=== PATIENT | female | born 1975 ===

== ENCOUNTER 2018-07-29 14:03 | Inpatient (IN) | payer OTHER ==
--- NOTE | 2018-07-29 14:28 | ED PDOC ---
HPI: Seizure Time Seen by Provider: 07/29/18 14:10 Chief Complaint (Nursing): Seizure Chief Complaint (Provider): Seizure History Per: EMS History/Exam Limitations: clinical condition Recent Seizure Activity Began: Just Before Arrival Number Of Seizures: One Quality Of Seizure: Generalized Post-ictal Period: Yes Additional Complaint(s): 42 year old female with a PMHx of seizure disorder, schizophrenia and mental delay was brought to the ED via EMS for an evaluation of a seizure. Patient had a seizure at PMD office. Seizure was generalized tonic-clonic and patient received 2mg Ativan IM in left deltoid for resolution. PMD: Non [facility] Provider Past Medical History Reviewed: Historical Data, Nursing Documentation, Vital Signs Vital Signs: Last Vital Signs Temp Pulse 106 H 07/29/18 16:23 Resp 23 07/29/18 16:23 BP 117/63 07/29/18 16:23 Pulse Ox 98 07/29/18 16:23 - Medical History PMH: Schizophrenia, Seizures - Family History Family History: States: Unknown Family Hx - Home Medications Home Medications: Ambulatory Orders Medication Instructions Recorded Benztropine [Cogentin] 2 mg PO Q12 07/29/18 Clonazepam [Klonopin] 2 mg PO Q12 07/29/18 DiphenhydrAMINE [Benadryl] 50 mg PO HS PRN 07/29/18 Docusate [Colace] 100 mg PO BID 07/29/18 LORazepam [Ativan] 1 mg PO Q8 PRN 07/29/18 Oxcarbazepine [Trileptal] 150 mg PO Q12 07/29/18 PHENobarbital [PHENobarbital Tab] 60 mg PO Q8 07/29/18 Phenytoin, Extended [Dilantin] 100 mg PO Q8 07/29/18 QUEtiapine [SEROquel] 50 mg PO HS 07/29/18 Ranitidine HCl [Zantac] 300 mg PO DAILY 07/29/18 Sennosides [Senna] 17.2 mg PO Q12 PRN 07/29/18 carBAMazepine [Tegretol] 200 mg PO Q8 07/29/18 fluPHENAZine [Prolixin] 5 mg PO HS 07/29/18 lamoTRIgine [Lamictal] 25 mg PO Q8 07/29/18 - Allergies Allergies/Adverse Reactions: Allergies Allergy/AdvReac Type Severity Reaction Status Date / Time Unobtainable Allergy Verified 07/29/18 14:11 Review of Systems Review Of Systems: ROS cannot be obtained secondary to pt's inabilty to answer questions. Physical Exam - Reviewed Nursing Documentation Reviewed: Yes Vital Signs Reviewed: Yes - Physical Exam Appears: Positive for: Non-toxic Head Exam: Positive for: ATRAUMATIC, NORMAL INSPECTION, NORMOCEPHALIC Skin: Positive for: Normal Color, Warm, Dry Cardiovascular/Chest: Positive for: Regular Rate, Rhythm Respiratory: Positive for: Normal Breath Sounds Gastrointestinal/Abdominal: Positive for: Soft. Negative for: Tenderness Neurologic/Psych: Positive for: Alert, Oriented (X3), Mood/Affect (patient crying, screaming, kicking and incomprehensive speech). Negative for: Motor/ Sensory Deficits (focal or motor) - Laboratory Results Result Diagrams: 07/29/18 16:30 07/29/18 16:30 - ECG Pulse Ox Interpretation: Normal Medical Decision Making Medical Decision Making: Time: 1411 Initial Impression: seizure Initial Plan: --EKG --CMP --Dilantin --ED Urine --ED Urine Dipstick --CBC w/ Differential --Phenobarbital --Haldol 5mg --Restraint: Violent or harm self/others --Reevaluation Scribe Attestation: Documented by Celena Rangel, acting as a scribe for Dung Harkins MD. Provider Scribe Attestation: All medical record entries made by the Scribe were at my direction and personally dictated by me. I have reviewed the chart and agree that the record accurately reflects my personal performance of the history, physical exam, medical decision making, and the department course for this patient. I have also personally directed, reviewed, and agree with the discharge instructions and disposition. Disposition - Clinical Impression Clinical Impression: Seizure disorder, Schizophrenia - Patient ED Disposition Is Patient to be Admitted: Yes - Disposition Disposition Time: 18:24 Condition: FAIR Forms: [employer] (Swazi) - Pt Status Changed To: Hospital Disposition Of: Observation - POA Present On Arrival: None
[2018-07-29] MEDS ORDERED: Sterile Water 10 ML IV ONE (15:38)
[2018-07-29 16:46] LABS: BASO % 0.3 % (0.0-2.0); EOS % 0.3 % (0.0-4.0); HEMOGLOBIN 11.7 g/dL (12.0-16.0); LYMPH # 0.7 K/uL (1.0-4.3); LYMPH % 14.5 % (20.0-40.0); MEAN CORPUSCULAR HEMOGLOBIN 28.1 pg (27.0-31.0); MEAN CORPUSCULAR HGB CONC 33.5 g/dL (33.0-37.0); MEAN PLATELET VOLUME 7.2 fl (7.2-11.7); MONO # 0.6 K/uL (0.0-0.8); MONO % 13.1 % (0.0-10.0); NEUT # 3.5 K/uL (1.8-7.0); NEUT % 71.8 % (50.0-75.0); NRBC % 0.4 % (0.0-0.0); RBC 4.17 Mil/uL (3.80-5.20); RED CELL DISTRIBUTION WIDTH 12.3 % (11.5-14.5); WHITE BLOOD COUNT 4.9 K/uL (4.8-10.8)
[2018-07-29 17:10] LABS: ALB/GLOB RATIO 0.9 (1.0-2.1); ALBUMIN 4.5 g/dL (3.5-5.0); ALT/SGPT 29 U/L (9-52); AST/SGOT 29 U/L (14-36); BLOOD UREA NITROGEN 4 mg/dl (7-17); GFR NON-AFRICAN AMERICAN > 60
[2018-07-30 06:10] LABS: BASO % 0.3 % (0.0-2.0); EOS # 0.1 K/uL (0.0-0.7); EOS % 1.7 % (0.0-4.0); HEMOGLOBIN 11.2 g/dL (12.0-16.0); LYMPH # 1.4 K/uL (1.0-4.3); LYMPH % 26.4 % (20.0-40.0); MEAN CELL VOLUME 85.2 fl (81.0-99.0); MEAN CORPUSCULAR HGB CONC 32.9 g/dL (33.0-37.0); MEAN PLATELET VOLUME 7.6 fl (7.2-11.7); MONO # 0.7 K/uL (0.0-0.8); NEUT % 58.6 % (50.0-75.0); RBC 3.99 Mil/uL (3.80-5.20); RED CELL DISTRIBUTION WIDTH 12.5 % (11.5-14.5); WHITE BLOOD COUNT 5.2 K/uL (4.8-10.8)
[2018-07-30 06:27] LABS: T4 5.36 ug/dl (5.5-11.0)
[2018-07-30 06:41] LABS: T3 1.48 nmol/L (1.49-2.60)
--- NOTE | 2018-07-30 06:41 | CP.PCM.HP ---
History of Present Illness - History of Present Illness History of Present Illness: 42 yo F with pmhx of schizophrenia, seizure disorder presented to ED due to recent seizures at PMD office. She was given Ativan 2mg. fmhx: unknown Present on Admission - Present on Admission Any Indicators Present on Admission: No History of Uncontrolled Diabetes: No Review of Systems - Review of Systems Systems not reviewed;Unavailable: Altered Mental Status, Other (intellectual disability) - Constitutional Constitutional: As Per HPI Past Patient History - Past Medical History & Family History Past Medical History?: Yes - Past Social History Smoking Status: Never Smoked Alcohol: None Drugs: Denies - CARDIAC Hx Cardiac Disorders: No - PULMONARY Hx Respiratory Disorders: No - NEUROLOGICAL Hx Neurological Disorder: Yes Hx Seizures: Yes - HEENT Hx HEENT Problems: No - RENAL Hx Chronic Kidney Disease: No - ENDOCRINE/METABOLIC Hx Endocrine Disorders: No - HEMATOLOGICAL/ONCOLOGICAL Hx Blood Disorders: No Hx AIDS: No Hx Human Immunodeficiency Virus (HIV): No - INTEGUMENTARY Hx Dermatological Problems: No - MUSCULOSKELETAL/RHEUMATOLOGICAL Hx Falls: No - GENITOURINARY/GYNECOLOGICAL Hx Genitourinary Disorders: No - PSYCHIATRIC Hx Schizophrenia: Yes Hx Substance Use: No - SURGICAL HISTORY Hx Surgeries: No - ANESTHESIA Hx Anesthesia: No Meds Allergies/Adverse Reactions: Allergies Allergy/AdvReac Type Severity Reaction Status Date / Time Unobtainable Allergy Verified 07/29/18 14:11 Physical Exam - Eye Exam Eye Exam: EOMI - Respiratory Exam Respiratory Exam: Clear to Auscultation Bilateral, NORMAL BREATHING PATTERN. absent: Wheezes - Cardiovascular Exam Cardiovascular Exam: +S1, +S2 - GI/Abdominal Exam GI & Abdominal Exam: Normal Bowel Sounds, Soft. absent: Tenderness - Psychiatric Exam Additional comments: intellectual disability Results - Vital Signs Recent Vital Signs: Last Vital Signs Temp 98.1 F 07/30/18 05:01 Pulse 72 07/30/18 05:01 Resp 18 07/30/18 05:01 BP 101/56 L 07/30/18 05:01 Pulse Ox 98 07/30/18 05:01 - Labs Result Diagrams: 07/30/18 05:20 07/30/18 05:20 Labs: Laboratory Results - last 24 hr 07/29/18 07/29/18 07/29/18 16:30 16:30 16:30 WBC 4.9 RBC 4.17 Hgb 11.7 L Hct 35.0 MCV 84.0 MCH 28.1 MCHC 33.5 RDW 12.3 Plt Count 274 MPV 7.2 Neut % (Auto) 71.8 Lymph % (Auto) 14.5 L [place] % (Auto) 13.1 H Eos % (Auto) 0.3 Baso % (Auto) 0.3 Neut # (Auto) 3.5 Lymph # (Auto) 0.7 L [place] # (Auto) 0.6 Eos # (Auto) 0.0 Baso # (Auto) 0.0 Sodium 138 Potassium 3.7 Chloride 102 Carbon Dioxide 26 Anion Gap 14 BUN 4 L Creatinine 0.6 L Est GFR ( Amer) > 60 Est GFR (Non-Af Amer) > 60 POC Glucose (mg/dL) Random Glucose 111 H Calcium 9.0 Total Bilirubin 0.1 L AST 29 ALT 29 Alkaline Phosphatase 99 Total Protein 9.4 H Albumin 4.5 Globulin 5.0 H Albumin/Globulin Ratio 0.9 L Thyroxine (T4) Total T3 TSH 3rd Generation Phenytoin 22.6 H 07/29/18 07/30/18 07/30/18 19:48 05:20 05:20 WBC 5.2 RBC 3.99 Hgb 11.2 L Hct 34.0 MCV 85.2 MCH 28.0 MCHC 32.9 L RDW 12.5 Plt Count 287 MPV 7.6 Neut % (Auto) 58.6 Lymph % (Auto) 26.4 [place] % (Auto) 13.0 H Eos % (Auto) 1.7 Baso % (Auto) 0.3 Neut # (Auto) 3.0 Lymph # (Auto) 1.4 [place] # (Auto) 0.7 Eos # (Auto) 0.1 Baso # (Auto) 0.0 Sodium Potassium Chloride Carbon Dioxide Anion Gap BUN Creatinine Est GFR ( Amer) Est GFR (Non-Af Amer) POC Glucose (mg/dL) 75 Random Glucose Calcium Total Bilirubin AST ALT Alkaline Phosphatase Total Protein Albumin Globulin Albumin/Globulin Ratio Thyroxine (T4) 5.36 L Total T3 1.48 L TSH 3rd Generation 0.88 Phenytoin Assessment & Plan (1) Schizophrenia Status: Acute (2) Seizure disorder Status: Acute - Assessment and Plan (Free Text) Plan: 42 yo F with pmhx of schizophrenia, seizure disorder presented to ED due to recent seizures Psychiatry; Dr. Astorga: Taper doxepin; recommendations appreciated Consult neurology: recommendations appreciated Continue with treatment/care as ordered case dw Dr. Molly Silverman MD PGY2
[2018-07-30 06:47] LABS: ALBUMIN 3.9 g/dL (3.5-5.0); ALT/SGPT 26 U/L (9-52); AST/SGOT 33 U/L (14-36); BLOOD UREA NITROGEN 10 mg/dl (7-17); CALCIUM 8.9 mg/dL (8.4-10.2); GFR NON-AFRICAN AMERICAN > 60
--- NOTE | 2018-07-30 07:40 | CARD ---
APPROVED REPORT Date of service: 07/29/2018 EKG Measurement Heart [id number] <Conclusion> Normal sinus rhythm Possible Left atrial enlargement Borderline ECG
--- NOTE | 2018-07-30 08:23 | CP.PCM.CON ---
History of Present Illness - History of Present Illness History of Present Illness: Psychiatry consult note CC: Admitted w/ seizures HPI: 42 yo female w/ h/o seizure disorder, intellectual disability and schizophrenia, admitted w/ seizures. Patient was acutely sedated and unable to engage in interview. Community Engagement Specialist spoke w/ patient's mother/guardian, Violet Murcia , who reports that patient is at her baseline psychiatrically and that she does not believe that the patient needs acute inpatient psychiatric admission at this time. She reports that the patient has been compliant with her psychiatric medications (Ativan 1 mg PO Q8 PRN anxiety, Prolixin 5 mg PO HS, Seroquel 50 mg PO HS, Doxepin 150 mg PO HS, Prolixin 37.5 mg IM [id number]- next dose due 08.06.18, Benadryl 50 mg PO HS PRN insomnia). She reports that the patient has been stable on this regimen and that she does not believe the medications needs to be modified at this time. Patient has outpatient psychiatric follow-up with Dr. Barr on 08.19.18. PPHx: Intellectual Disability, Schizophrenia PMHx: Seizure Disorder, Constipation SHx: Lives w/ mother and mother's uncle; no drugs/etoh/cig use Impression: 42 yo h/o seizure disorder, intellectual disability and schizophrenia, is at her baseline of functioning psychiatrically as per her mother/guardian, who does not believe the patient needs psychiatric hospitalization at this time. -Continue current psychiatric medications if not medically contraindicated and outpatient psychiatric follow-up -Consider neurology consult for management of seizure disorder Past Patient History - Past Medical History & Family History Past Medical History?: Yes - Past Social History Smoking Status: Never Smoked - CARDIAC Hx Cardiac Disorders: No - PULMONARY Hx Respiratory Disorders: No - NEUROLOGICAL Hx Neurological Disorder: Yes - HEENT Hx HEENT Problems: No - RENAL Hx Chronic Kidney Disease: No - ENDOCRINE/METABOLIC Hx Endocrine Disorders: No - HEMATOLOGICAL/ONCOLOGICAL Hx Blood Disorders: No Hx AIDS: No Hx Human Immunodeficiency Virus (HIV): No - INTEGUMENTARY Hx Dermatological Problems: No - MUSCULOSKELETAL/RHEUMATOLOGICAL Hx Falls: No - GENITOURINARY/GYNECOLOGICAL Hx Genitourinary Disorders: No - PSYCHIATRIC Hx Substance Use: No - SURGICAL HISTORY Hx Surgeries: No - ANESTHESIA Hx Anesthesia: No Meds Allergies/Adverse Reactions: Allergies Allergy/AdvReac Type Severity Reaction Status Date / Time Unobtainable Allergy Verified 07/29/18 14:11 - Medications Medications: Current Medications Clonazepam (Klonopin) 2 mg PO Q12 [facility] Last Admin: 07/30/18 00:04 Dose: 2 mg Famotidine (Pepcid) 40 mg PO DAILY [facility] Oxcarbazepine (Trileptal) 150 mg PO Q12 [facility] Last Admin: 07/30/18 00:05 Dose: 150 mg Phenobarbital (Phenobarbital Tab) 60 mg PO Q8 [facility] Last Admin: 07/30/18 00:03 Dose: 60 mg Phenytoin Sodium (Dilantin) 100 mg PO Q8 [facility] Last Admin: 07/30/18 00:04 Dose: 100 mg Quetiapine Fumarate (Seroquel) 50 mg PO [facility] Last Admin: 07/30/18 00:04 Dose: 50 mg Sennosides (Senokot Tab) 17.2 mg PO Q12 PRN PRN Reason: Constipation Results - Vital Signs Recent Vital Signs: Last Vital Signs Temp 98.4 F 07/30/18 08:18 Pulse 82 07/30/18 08:18 Resp 18 07/30/18 08:18 BP 93/60 L 07/30/18 08:18 Pulse Ox 97 07/30/18 08:18 - Labs Result Diagrams: 07/30/18 05:20 07/30/18 05:20 Labs: Laboratory Results - last 24 hr 07/29/18 07/29/18 07/29/18 16:30 16:30 16:30 WBC 4.9 RBC 4.17 Hgb 11.7 L Hct 35.0 MCV 84.0 MCH 28.1 MCHC 33.5 RDW 12.3 Plt Count 274 MPV 7.2 Neut % (Auto) 71.8 Lymph % (Auto) 14.5 L [place] % (Auto) 13.1 H Eos % (Auto) 0.3 Baso % (Auto) 0.3 Neut # (Auto) 3.5 Lymph # (Auto) 0.7 L [place] # (Auto) 0.6 Eos # (Auto) 0.0 Baso # (Auto) 0.0 Sodium 138 Potassium 3.7 Chloride 102 Carbon Dioxide 26 Anion Gap 14 BUN 4 L Creatinine 0.6 L Est GFR ( Amer) > 60 Est GFR (Non-Af Amer) > 60 POC Glucose (mg/dL) Random Glucose 111 H Calcium 9.0 Phosphorus Magnesium Total Bilirubin 0.1 L AST 29 ALT 29 Alkaline Phosphatase 99 Total Protein 9.4 H Albumin 4.5 Globulin 5.0 H Albumin/Globulin Ratio 0.9 L Thyroxine (T4) Total T3 TSH 3rd Generation Phenytoin 22.6 H Phenobarbital 07/29/18 07/29/18 07/30/18 16:30 19:48 05:20 WBC 5.2 RBC 3.99 Hgb 11.2 L Hct 34.0 MCV 85.2 MCH 28.0 MCHC 32.9 L RDW 12.5 Plt Count 287 MPV 7.6 Neut % (Auto) 58.6 Lymph % (Auto) 26.4 [place] % (Auto) 13.0 H Eos % (Auto) 1.7 Baso % (Auto) 0.3 Neut # (Auto) 3.0 Lymph # (Auto) 1.4 [place] # (Auto) 0.7 Eos # (Auto) 0.1 Baso # (Auto) 0.0 Sodium Potassium Chloride Carbon Dioxide Anion Gap BUN Creatinine Est GFR ( Amer) Est GFR (Non-Af Amer) POC Glucose (mg/dL) 75 Random Glucose Calcium Phosphorus Magnesium Total Bilirubin AST ALT Alkaline Phosphatase Total Protein Albumin Globulin Albumin/Globulin Ratio Thyroxine (T4) Total T3 TSH 3rd Generation Phenytoin Phenobarbital 18.4 07/30/18 05:20 WBC RBC Hgb Hct MCV MCH MCHC RDW Plt Count MPV Neut % (Auto) Lymph % (Auto) [place] % (Auto) Eos % (Auto) Baso % (Auto) Neut # (Auto) Lymph # (Auto) [place] # (Auto) Eos # (Auto) Baso # (Auto) Sodium 138 Potassium 4.0 Chloride 104 Carbon Dioxide 28 Anion Gap 10 BUN 10 Creatinine 0.5 L Est GFR ( Amer) > 60 Est GFR (Non-Af Amer) > 60 POC Glucose (mg/dL) Random Glucose 86 Calcium 8.9 Phosphorus 4.5 Magnesium 2.1 Total Bilirubin 0.1 L AST 33 ALT 26 Alkaline Phosphatase 87 Total Protein 8.0 Albumin 3.9 Globulin 4.1 H Albumin/Globulin Ratio 1.0 Thyroxine (T4) 5.36 L Total T3 1.48 L TSH 3rd Generation 0.88 Phenytoin Phenobarbital
[2018-07-30] MEDS ORDERED: Alum-Mag Hydrox-Simethicone Susp (30 mL) PO ONE (19:35)
[2018-07-31 13:32] VITALS: RESP 20
--- NOTE | 2018-07-31 13:39 | CP.PCM.PN ---
Subjective - Date & Time of Evaluation Date of Evaluation: 07/31/18 Time of Evaluation: 11:00 - Subjective Subjective: pt seen and examined. Pt sitting in chair drinking water. Pt and caregiver denies acute overnight events. No seizure activity. Objective - Vital Signs/Intake and Output Vital Signs (last 24 hours): Temp Pulse Resp BP Pulse Ox 97.7 F 78 20 118/76 96 07/31/18 12:00 07/31/18 12:00 07/31/18 12:00 07/31/18 12:00 07/31/18 12:00 - Medications Medications: Current Medications Clonazepam (Klonopin) 2 mg PO Q12 [facility] Last Admin: 07/31/18 10:00 Dose: 2 mg Doxepin HCl (Sinequan) 100 mg PO [facility] Last Admin: 07/30/18 21:07 Dose: 100 mg Famotidine (Pepcid) 40 mg PO DAILY [facility] Last Admin: 07/31/18 09:29 Dose: 40 mg Lorazepam (Ativan) 0.5 mg IVP Q8 PRN PRN Reason: Agitation Oxcarbazepine (Trileptal) 150 mg PO Q12 [facility] Last Admin: 07/31/18 09:31 Dose: 150 mg Pantoprazole Sodium (Protonix Inj) 40 mg IVP DAILY [facility] Last Admin: 07/31/18 09:29 Dose: 40 mg Phenobarbital (Phenobarbital Tab) 60 mg PO Q8 [facility] Last Admin: 07/31/18 10:00 Dose: 60 mg Phenytoin Sodium (Dilantin) 100 mg PO Q8 [facility] Last Admin: 07/30/18 09:50 Dose: 100 mg Quetiapine Fumarate (Seroquel) 50 mg PO [facility] Last Admin: 07/30/18 21:09 Dose: 50 mg Sennosides (Senokot Tab) 17.2 mg PO Q12 PRN PRN Reason: Constipation - Labs Labs: 07/30/18 05:20 07/30/18 05:20 - Constitutional Appears: Well, No Acute Distress - Eye Exam Eye Exam: EOMI - Respiratory Exam Respiratory Exam: NORMAL BREATHING PATTERN - Cardiovascular Exam Cardiovascular Exam: +S1, +S2 - GI/Abdominal Exam GI & Abdominal Exam: Soft, Normal Bowel Sounds. absent: Tenderness - Neurological Exam Neurological Exam: Alert, Awake Assessment and Plan (1) Schizophrenia Status: Acute (2) Seizure disorder Status: Acute - Assessment and Plan (Free Text) Plan: Continue current treatment/care plan as ordered Neurology on board. Recommendations appreciated; possible EEG today Case dw Dr. Molly Silverman MD PGY2
[2018-07-31 16:33] VITALS: BP 113/77; PULSE 93; TEMP 97.9; O2SAT 100
--- NOTE | 2018-08-01 18:14 | CP.PCM.CON ---
History of Present Illness - History of Present Illness History of Present Illness: Tresa العراقي is a 42 yo female with a history of developmental disability, seizures, and schizophrenia who presented with an apparent breakthrough seizure. The seizure was generalized clonic-tonic, and she received 2 mg of Ativan by EMS. Patient has a history of refractory seizures and is currently on multiple antiseizure medications. Patient has not has any witnessed seizure activity since arrival to the hospital. PMH: Developmental disability Seizure disorder Schizophrenia Meds: Tripleptal 150 mg PO BID Phenobarbital 60 mg PO q8hrs Phenytoin 100 mg PO q8hrs Tegretol 200 mg PO q8hrs Lamictal 25 mg PO q8hrs Klonopin 2 mg PO BID Ativan 1 mg PO q8hrs PRN Cogentin 2 mg PO BID Prolixin 37.5 mg IM [id number] Prolixin 5 mg PO QHS Seroquel 50 mg PO QHS Doxepin 150 mg PO QHS Benadryl 50 mg PO QHS PRN Ranitidine Colace All: none FH: unknown SH: denies alcohol, tobacco, drug use Psychiatrist: Dr. Barr Review of Systems - Review of Systems Systems not reviewed;Unavailable: Other (mental status- developmental delay) Past Patient History - Infectious Disease Hx of Infectious Diseases: None - Tetanus Immunizations Tetanus Immunization: Unknown - Past Medical History & Family History Past Medical History?: Yes Past Family History: Reviewed and not pertinent - Past Social History Smoking Status: Never Smoked Chewing Tobacco Use: No Cigar Use: No Alcohol: None Drugs: Denies Home Situation {Lives}: With Family (mother) - CARDIAC Hx Cardiac Disorders: No - PULMONARY Hx Respiratory Disorders: No - NEUROLOGICAL Hx Neurological Disorder: Yes Hx Seizures: Yes - HEENT Hx HEENT Problems: No - RENAL Hx Chronic Kidney Disease: No - ENDOCRINE/METABOLIC Hx Endocrine Disorders: No - HEMATOLOGICAL/ONCOLOGICAL Hx Blood Disorders: No Hx AIDS: No Hx Human Immunodeficiency Virus (HIV): No - INTEGUMENTARY Hx Dermatological Problems: No - MUSCULOSKELETAL/RHEUMATOLOGICAL Hx Falls: No - GENITOURINARY/GYNECOLOGICAL Hx Genitourinary Disorders: No - PSYCHIATRIC Hx Schizophrenia: Yes Hx Substance Use: No - SURGICAL HISTORY Hx Surgeries: No - ANESTHESIA Hx Anesthesia: No Meds Home Medications: Home Medication List Medication Instructions Recorded Confirmed Type Oxcarbazepine [Trileptal] 150 mg PO QAM #30 tablet 07/31/18 Rx Oxcarbazepine [Trileptal] 300 mg PO HS #30 tablet 07/31/18 Rx Allergies/Adverse Reactions: Allergies Allergy/AdvReac Type Severity Reaction Status Date / Time Unobtainable Allergy Verified 07/29/18 14:11 Physical Exam - Constitutional Appears: Non-toxic, No Acute Distress - Head Exam Head Exam: ATRAUMATIC, NORMAL INSPECTION, NORMOCEPHALIC - Neurological Exam Neurological exam: Alert, CN II-XII Intact, Reflexes Normal Additional comments: no gross sensory or motor deficits no seizure activity Results - Vital Signs Recent Vital Signs: Last Vital Signs Temp 97.9 F 07/31/18 16:29 Pulse 93 H 07/31/18 16:29 Resp 20 07/31/18 16:29 BP 113/77 07/31/18 16:29 Pulse Ox 100 07/31/18 16:29 - Labs Result Diagrams: 07/30/18 05:20 07/30/18 05:20 Assessment & Plan - Assessment and Plan (Free Text) Assessment: Patient is a 42 yo female who presented with a breakthrough seizure. Patient is on multiple antiseizure medications. Plan: Seizure- h/o refractory seizure disorder and developmental disability - Continue current phenobarbital dose- level within therapeutic range (18.9) - Continue current Tegretol dose - Continue current Lamictal dose - Recommend adjusting Phenytoin dosing to BID- level initially high (22.6), now therapeutic (16.9) - Increase Trileptal to 150 mg PO QAM and 300 mg PO QHS - EEG not necessary at this time- patient has known seizure disorder - Correct any electrolyte abnormalities Neurology will sign off case at this time. Recommend patient follow-up with outpatient neurologist within 1 week of discharge. Please re-consult if necessary. Case discussed with attending, Dr. Alva.
== END 2018-07-31 19:42 | disposition home or self-care (01) | DRG 101 ==
LOC: H.ER 14:03 → H.ERHOLD 18:22 → H.TEL 22:04 → OBSVTOIN 07-31 13:23
PROVIDERS: ADMIT Family Medicine; ATTEND Family Medicine
DX: G40.409 Other generalized epilepsy and epileptic syndromes, not intractable, without status epilepticus (principal); F79 Unspecified intellectual disabilities; F20.9 Schizophrenia, unspecified